=== PATIENT | female | born 1950 | race Caucasian/White ===

== ENCOUNTER 2017-04-05 05:23 | Inpatient (IN) ==
--- OUTSIDE RECORDS SUMMARY | 2017-04-05 05:31 | External Medical Summary | Continuity of Care Document ---
:1950 Author Organization [facility] LIVE HCIS Care Team Providers Name Role Phone Fox Britt MD Unavailable Unavailable Insurance Providers Payer Name Policy Number Subscriber Name Relationship [employer] [id number] Penelope Newman 18 Self / Same As Patient Problems Medical Problems Problem Onset Date Status Fracture of head of left humerus Unknown Active Medications Medication Dose Route Sig Days/Qty Instructions Order Discontinued Status Date Date [No Home 02/15/15 Active Meds] Oxycodone/Jg 1-2 Tab ORAL THREE 12 Qty 02/15/15 Active taminophen TIMES A DAY PRN PAIN Social History No social history. Hospital Discharge Instructions No hospital discharge instructions. Plan of Care No plan of care. Functional Status No functional status results. Allergies, Adverse Reactions, Alerts Allergen Type Severity Reaction Status Last Updated No Known Drug Allergies Active 02/15/15 Immunizations No immunization records. Vital Signs No known vital signs results. Results No known relevant diagnostic tests, laboratory data and/or discharge summary. Procedures Procedure Status Date Provider(s) X-RAY EXAM OF SHOULDER completed 03/27/15 Encounters Encounter Location Date/Time Discharged Recurring [facility] 04/07/15 9:45am Registered Clinic [facility] 03/27/15 11:20am
--- OUTSIDE RECORDS SUMMARY | 2017-04-05 05:31 | External Medical Summary | Continuity of Care Document ---
:1950 Author Organization [facility] Care Team Providers Name Role Phone Fox Britt MD Unavailable Unavailable Insurance Providers Payer Name Policy Number Subscriber Name Relationship Medicare A And B [id number] Penelope Newman 18 Self / Same As Patient Advance Directives Directive Response Recorded Date/Time Advanced Directives Not applicable 05/25/15 4:17pm Problems Active Problems Medical Problem Onset Date Status Fracture of head of left humerus Unknown Acute Injury of lower extremity Unknown Acute Medications Current Home Medications Medication Dose Units Route Directions Days/Qty Instructions Start Date [No Home Meds] 02/15/15 Past Home Medications Medication Directions Ordered Status Oxycodone/Acetaminophen 1 Tab Three Times A Day as needed for 02/15/15 Discontinued Tablet, 1-2 Tab Oral Pain Social History No social history. Hospital Discharge Instructions Current inpatient/outpatient. Discharge instructions are currently unavailable. Plan of Care Prescriptions Functional Status No functional status results. Allergies, Adverse Reactions, Alerts No known allergies. Immunizations No immunization records. Vital Signs Acute Vital Signs Vital Response Date/Time Temperature (Fahrenheit) 98.6 05/25/2015 4:17pm Pulse 85 bpm 05/25/2015 6:34pm Respirations 18 05/25/2015 6:34pm Results Laboratory Results Test Name Result Units Flags Reference Collection Result Comments Date/Time Date/Time White Blood Count 6.51 10^3uL 4.0-11.0 05/25/2015 05/25/2015 3:29pm 4:45pm Red Blood Count 4.38 10^6uL 4.00-5.00 05/25/2015 05/25/2015 3:29pm 4:45pm Hemoglobin 13.7 g/dL 12.0-15.5 05/25/2015 05/25/2015 3:29pm 4:45pm Hematocrit 40.20 % 35.00-45.00 05/25/2015 05/25/2015 3:29pm 4:45pm Mean Corpuscular 92 FL 80-100 05/25/2015 05/25/2015 Volume 3:29pm 4:45pm Mean Corpuscular 31.3 PG 26.0-34.0 05/25/2015 05/25/2015 Hemoglobin 3:29pm 4:45pm Mean Corpuscular 34.1 g/dL 31.0-37.0 05/25/2015 05/25/2015 Hemoglobin Concent 3:29pm 4:45pm Red Cell 12.8 % 11.8-15.6 05/25/2015 05/25/2015 Distribution Width 3:29pm 4:45pm Platelet Count 216 10^3uL 150-450 05/25/2015 05/25/2015 3:29pm 4:45pm Mean Platelet 11.2 FL H 6.0-9.5 05/25/2015 05/25/2015 Volume 3:29pm 4:45pm Neutrophils (%) 49 % L 51-67 05/25/2015 05/25/2015 (Auto) 3:29pm 4:45pm Lymphocytes (%) 41 % 20-46 05/25/2015 05/25/2015 (Auto) 3:29pm 4:45pm Monocytes (%) 8 % 3-11 05/25/2015 05/25/2015 (Auto) 3:29pm 4:45pm Eosinophils (%) 1 % 0-4 05/25/2015 05/25/2015 (Auto) 3:29pm 4:45pm Basophils (%) 1 % 0-2 05/25/2015 05/25/2015 (Auto) 3:29pm 4:45pm Neutrophils # 3.2 X10^3 05/25/2015 05/25/2015 (Auto) 3:29pm 4:45pm Lymphocytes # 2.7 X10^3 05/25/2015 05/25/2015 (Auto) 3:29pm 4:45pm Monocytes # (Auto) 0.5 X10^3 05/25/2015 05/25/2015 3:29pm 4:45pm Eosinophils # 0.0 10^3uL 05/25/2015 05/25/2015 (Auto) 3:29pm 4:45pm Basophils # (Auto) 0.1 10^3uL 05/25/2015 05/25/2015 3:29pm 4:45pm Prothrombin Time 11.9 SEC 11.9-14.2 05/25/2015 05/25/2015 3:29pm 4:46pm Prothromb Time 0.9 0.8-1.4 05/25/2015 05/25/2015 International Ratio 3:29pm 4:46pm Activated Partial 27.4 SEC 24.9-35.9 05/25/2015 05/25/2015 Thromboplast Time 3:29pm 4:46pm Volume Urine 10 mL 05/25/2015 05/25/2015 Centrifuged 5:55pm 6:13pm Urine Collection CATHETER 05/25/2015 05/25/2015 Type 5:55pm 6:13pm Urine Color Yellow 05/25/2015 05/25/2015 5:55pm 6:11pm Urine Clarity Slightly 05/25/2015 05/25/2015 Cloudy 5:55pm 6:11pm Urine pH 7.5 5.0 - 8.0 05/25/2015 05/25/2015 5:55pm 6:11pm Urine Specific 1.020 1.005-1.030 05/25/2015 05/25/2015 [place] 5:55pm 6:11pm Urine Protein Negative Negative 05/25/2015 05/25/2015 5:55pm 6:11pm Urine Glucose (UA) Negative Negative 05/25/2015 05/25/2015 5:55pm 6:11pm Urine RBC (Auto) Trace-inta H Negative 05/25/2015 05/25/2015 ct 5:55pm 6:11pm Urine Ketones Negative Negative 05/25/2015 05/25/2015 5:55pm 6:11pm Urine Nitrite Negative Negative 05/25/2015 05/25/2015 5:55pm 6:11pm Urine Bilirubin Negative Negative 05/25/2015 05/25/2015 5:55pm 6:11pm Urine Urobilinogen 0.2 mg/dL 0.2-1.0 05/25/2015 05/25/2015 5:55pm 6:11pm Urine Leukocyte Negative Negative 05/25/2015 05/25/2015 Esterase 5:55pm 6:11pm Urine RBC 5-10 /HPF H 05/25/2015 05/25/2015 5:55pm 6:13pm Urine WBC 0-2 /HPF 05/25/2015 05/25/2015 5:55pm 6:13pm Urine Bacteria Rare /HPF 05/25/2015 05/25/2015 5:55pm 6:13pm Urine Squamous 2-5 /LPF 05/25/2015 05/25/2015 Epithelial Cells 5:55pm 6:13pm Urine Calcium 1+ /HPF H 05/25/2015 05/25/2015 Oxalate Crystals 5:55pm 6:13pm Urine Mucus 1+ 05/25/2015 05/25/2015 5:55pm 6:13pm Sodium Level 143 mmol/L 135-150 05/25/2015 05/25/2015 4:34pm 4:53pm Potassium Level 3.6 mmol/L 3.5-5.1 05/25/2015 05/25/2015 4:34pm 4:53pm Chloride Level 102 mmol/L 98-108 05/25/2015 05/25/2015 4:34pm 4:53pm Carbon Dioxide 30 mmol/L H 22-29 05/25/2015 05/25/2015 Level 4:34pm 4:53pm Anion Gap 13.9 MEQ/L -05/25/2015 05/25/2015 4:34pm 4:53pm Blood Urea Nitrogen 11 mg/dL 02-2205/25/2015 05/25/2015 4:34pm 4:53pm Creatinine 0.63 mg/dL 0.6-1.2 05/25/2015 05/25/2015 4:34pm 4:53pm BUN/Creatinine 17 1005/25/2015 05/25/2015 Ratio 4:34pm 4:53pm Estimat Glomerular 114.8 05/25/2015 05/25/2015 Filtration Rate 4:34pm 4:53pm Estimated GFR 94.8 05/25/2015 05/25/2015 (Non- 4:34pm 4:53pm [place] Glucose Level 153 mg/dL H 70-110 05/25/2015 05/25/2015 4:34pm 4:53pm Calculated 277 mosm/L L 280-300 05/25/2015 05/25/2015 Osmolality 4:34pm 4:53pm Calcium Level 9.0 mg/dL 8.8-10.8 05/25/2015 05/25/2015 4:34pm 4:53pm Calcium/Ionized 4.2 mg/dL 3.8-4.6 05/25/2015 05/25/2015 Calcium Ratio 4:34pm 4:53pm Total Bilirubin 0.3 mg/dL 0.1-1.0 05/25/2015 05/25/2015 4:34pm 4:53pm Alkaline 56 U/L 38-126 05/25/2015 05/25/2015 Phosphatase 4:34pm 4:53pm Aspartate Amino 19 U/L 15-37 05/25/2015 05/25/2015 Transf (AST/SGOT) 4:34pm 4:53pm Alanine 23 U/L L 30-65 05/25/2015 05/25/2015 Aminotransferase 4:34pm 4:53pm (ALT/SGPT) Total Protein 6.5 g/dL 6.4-8.5 05/25/2015 05/25/2015 4:34pm 4:53pm Albumin 3.8 g/dL 3.4-5.0 05/25/2015 05/25/2015 4:34pm 4:53pm Albumin/Globulin 1.407 1.1-1.8 05/25/2015 05/25/2015 Ratio 4:34pm 4:53pm Procedures No known history of procedures. Encounters Encounter Location Arrival/Admit Date Discharge/Depart Date Attending Provider Registered [facility] 05/25/15 6:38pm BRUNILDA, [facility] KARMA Oneill MD Departed [facility] 05/25/15 4:07pm 05/25/15 6:52pm BRUNILDA, [facility] KARMA Oneill MD
--- OUTSIDE RECORDS SUMMARY | 2017-04-05 05:32 | External Medical Summary | Continuity of Care Document ---
:1950 Author Organization [facility] Allergies Active Description Code Type Severity Reaction Onset Reported/ Identified Relationship Clinical to Patient Status Yes No Known F0019 Drug Unknown N/A 02/15/2015 Drug 86817 Aller Allergies gy Medications Problems Date Dx Coded Attending Type Code Diagnosis Diagnosed By 02/15/2015 Balwinder NGUYỄN, Ot V76.12 Fox Tai 02/15/2015 Ot V57.1 02/15/2015 Ot V58.78 02/15/2015 GERARD NGUYỄN, Ot 729.5 MICK D 02/15/2015 GERARD NGUYỄN, Ot 812.01 MICK D 02/15/2015 GERARD NGUYỄN, Ot E000.9 MICK D 02/15/2015 GERARD NGUYỄN, Ot E030 MICK D 02/15/2015 GERARD NGUYỄN, Ot E849.9 MICK D 02/15/2015 GERARD NGUYỄN, Ot E888.9 MICK D 03/27/2015 Isaac NGUYỄN, Ot 905.2 Bj Diego 04/04/2015 Isaac NGUYỄN, Ot 812.01 Bj Diego 04/07/2015 Isaac NGUYỄN, Ot 812.01 Bj Diego 04/07/2015 Isaac NGUYỄN, Ot E001.0 Bj Diego 04/07/2015 Isaac NGUYỄN, Ot E849.0 Bj Diego 04/07/2015 Isaac NGUYỄN, Ot E885.9 Bj Diego 04/07/2015 Isaac NGUYỄN, Ot 905.2 Hair 05/25/2015 Balwinder NGUYỄN, Ot V76.12 Fox Tai 05/25/2015 Isaac NGUYỄN, Ot 905.2 Bj Diego 05/25/2015 Isaac NGUYỄN, Ot 905.2 Bj Diego 05/25/2015 BRUNILDA NGUYỄN, Ot S01.111A KARMA P 05/25/2015 BRUNILDA NGUYỄN, Ot S72.141A KARMA P 05/25/2015 BRUNILDA NGUYỄN, Ot W54.1XXA KARMA P 05/25/2015 BRUNILDA NGUYỄN, Ot Y93.89 KARMA P 06/17/2015 BRUNILDA NGUYỄN, Ot S72.001A KARMA P 06/17/2015 BRUNILDA NGUYỄN, Ot W18.39XA KARMA P 06/17/2015 BRUNILDA NGUYỄN, Ot Y92.015 KARMA P 06/17/2015 BRUNILDA NGUYỄN, Ot Y93.89 KARMA P Procedures Results Encounters ACCT Visit Discharge Status Pt. Type Provider Facility Loc./Unit Complaint No. Date/Time [id number] 05/25/2015 05/25/2015 CLS Outpatient [facility] [id number] 18:38:00 23:59:59 , [facility] [id number] 05/25/2015 05/25/2015 DIS Emergency EUGENIAGIANI Gomez ED [id number] 16:07:00 18:52:00 , [facility] [id number] 04/07/2015 04/07/2015 DIS Outpatient Isaac Gomez PT [id number] 09:45:00 12:00:00 , [facility] [id number] 03/27/2015 03/27/2015 CLS Outpatient Isaac Donaldo RAD [id number] 11:20:00 23:59:59 , [facility] [id number] 03/12/2015 03/12/2015 CLS Outpatient Isaac Donaldo RAD [id number] 13:23:00 23:59:59 , [facility] [id number] 02/15/2015 02/15/2015 DIS Emergency GEEVIDA Gomez ED [id number] 19:53:00 22:50:00 , [facility] D [id number] 12/18/2013 12/18/2013 CLS Outpatient Balwinder Gomez RAD [id number] 08:24:00 23:59:59 , [facility] [id number] 05/11/2012 Document [id number] 12:15:00 Registration
[2017-04-05 05:40] VITALS: BMI 22.9
[2017-04-05] MEDS ORDERED: SALINE FLUSH 10ml SYRINGE IVF PRN (05:44)
[2017-04-05] MEDS ORDERED: FAMOTIDINE PB 20 MG/50 ML BAG IV ONE (06:00)
[2017-04-05] MEDS ORDERED: MELOXICAM 15 MG TABLET PO ONE (06:00)
[2017-04-05] MEDS ORDERED: LIDOCAINE 1% (10mg/ml) 2mL INJ PF SDV ID ONE (06:00)
[2017-04-05] MEDS ORDERED: NOZIN NASAL SWAB NAS ONE ×2 (06:00→10:50)
[2017-04-05] MEDS ORDERED: METOCLOPRAMIDE 10mg/2ml INJECTION IVP ONE (06:00)
[2017-04-05] MEDS ORDERED: ONDANSETRON 4 MG/2 ML INJECTION IVP ONE (06:00)
[2017-04-05] MEDS ORDERED: ACETAMINOPHEN 500 MG TABLET PO ONE (06:00)
[2017-04-05] MEDS ORDERED: CEFAZOLIN 1 G INJECTION IVP ONE (06:00)
[2017-04-05] MEDS ORDERED: TRANEXAMIC ACID 1,000 MG in NS 100 ML IV ONE ×2 (06:00→07:00)
[2017-04-05] MEDS ORDERED: DEXAMETHASONE 4 MG/ML INJECTION IVP ONE (06:00)
[2017-04-05] MEDS: LR 1,000 ML IV SCH ×2 (06:07→08:45)
--- NOTE | 2017-04-05 06:44 | Anesthesia Preoperative Report ---
Anesthesia Preoperative Record - Date and Time Date: 04/05/17 Preoperative Diagnosis: Rt TKA (RA) M17.11 primary osteoarthritis right knee Proposed Procedure: right knee arthroplasty NPO Since Date: 04/04/17 NPO Since Time: 23:00 Allergies/Adverse Reactions: Allergies Allergy/AdvReac Type Severity Reaction Status Date / Time No Known Drug Allergies Allergy Unknown Uncoded 04/05/17 05:52 - Vital Signs Vital Signs: Temperature 98.1 F 04/05/17 05:40 Pulse Rate 89 04/05/17 05:54 Respiratory Rate 17 04/05/17 05:40 Blood Pressure 158/77 H 04/05/17 05:40 Pulse Oximetry 99 04/05/17 05:40 Oxygen Delivery Method Room Air Height and Weight: Height 1.64 m Weight 61.6 kg Body Mass Index 22.9 - Medications Inpatient Medications: Current Medications Lactated Ringer's (Lactated Ringers) 1,000 mls @ 50 mls/hr IV .Q20H SARA Last Admin: 04/05/17 06:07 Dose: 50 mls/hr Epinephrine HCl 0.25 mg/Bupivacaine HCl 30 ml/Morphine Sulfate 15 mg/Ketorolac Tromethamine 60 mg/Sodium Chloride 65.25 mls @ 1 mls/hr OPSITE INTRAOP ONE PRN Reason: Protocol Stop: 04/08/17 01:14 Tranexamic Acid 1,000 mg/ (Sodium Chloride) 110 mls @ 660 mls/hr IV INTRAOP ONE Stop: 04/05/17 07:09 Sodium Chloride (Iv Flush) 10 - 80 ml IVF PRN PRN PRN Reason: Flushing Home Medications: Home Medications Medication Instructions Recorded Confirmed Type Ibuprofen 4 tab PO PRN 02/01/17 04/05/17 History Multivitamin [Multivitamins] 1 cap PO DAILY 02/01/17 04/05/17 History Calcium Carbonate [Calcium] 1 tab PO DAILY 03/25/17 04/05/17 History Magnesium Oxide [Magnesium] 400 mg PO DAILY 03/25/17 04/05/17 History - Medical History Neuro/Musculoskeletal: Reports: Other (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, patent foramen ovale, umbrella procedure ) Other History: Reports: Other (nonessential tremor ) - Surgical History Cardiac Surgeries/Treatments: Reports: Other (Repair PFO 2001 ) GI Surgery/Treatments: Reports: Colonoscopy Musculoskeletal Surgery/Tx: Reports: Orthopedic Surgery (ORIF Rt tibial plateau; Cephalomedullary fixation of left intertrochanteric), Other (achilles tendon repair; Rt hip fx repaired) Anesthesia Reactions: None Hx Family Anesthesia Reaction: No History of Motion Sickness: No - Social History Smoking Status: Never smoker - Pertinent Findings EKG Rhythm: Normal Sinus Rhythm - Physical Exam Respiratory Exam: Present: lungs clear, bilateral breath sounds equal Cardiovascular Exam: Present: regular rate and rhythm, no murmur - Airway Assessment Mallampati Score: I TMD: 3 Fingerbreadths Neck Extension: good Overall Assessment: no airway concerns - ASA ASA Score: 3 - Plan Anesthesia: General Inhalation Gases Peripheral Nerve Block: Saphenous-Right - Discussion Discussion: Discussed risks/options/alternatives of anesthesia and questions answered. Patient consents. Nursing pain assessment noted. Attestation Statement: Prior to the delivery of any anesthetic medication, I examined the patient, developed the plan, obtained the patient's consent and discussed the risk and benefits of the procedure with the patient/guardian.
[2017-04-05] MEDS ORDERED: MIDAZOLAM 2mg/2ml INJECTION IVP ONE (06:46)
[2017-04-05] MEDS ORDERED: SCOPOLAMINE 1.5 MG PATCH TD ONE (06:46)
[2017-04-05] MEDS ORDERED: VANCOMYCIN 1,000 MG INJECTION ONE (06:51)
[2017-04-05] MEDS ORDERED: ROPIVACAINE 0.5% (5mg/ml) 30ml INJ ONE (06:52)
[2017-04-05] MEDS ORDERED: ANESTHESIA MIXTURE 50 ML IV ONE (07:00)
[2017-04-05] MEDS ORDERED: FentaNYL 100 MCG/2 ML INJECTION ONE ×5 (07:07→08:24)
[2017-04-05] MEDS ORDERED: PROPOFOL 20 ML ONE ×2 (07:07→07:08)
[2017-04-05] MEDS ORDERED: LIDOCAINE 2% (100mg/5mL) PF 5ml vl ONE (07:07)
[2017-04-05] MEDS ORDERED: EPHEDRINE 50mg/ml INJECTION ONE (07:24)
[2017-04-05] MEDS ORDERED: SALINE FLUSH 10ml SYRINGE ONE (07:24)
--- NOTE | 2017-04-05 07:41 | Anesthesia Procedure Note ---
Peripheral Nerve Blockade - Procedure Physician: Elmer Henning MD Date: 04/05/17 Surgical Procedure: right knee arthroplasty Discussion: Discussed risks/options/alternatives of anesthesia and questions answered. Patient consents. Nursing pain assessment noted. Block Start: 06:58 Block Stop: 07:00 Blocked Employed: Adductor Canal Indication: Post-Operative Pain Approach: Right Side Confirmed Position: Supine Patient: Consent, Risks/Benefits Discussed, Informed, Post Block Act. Discussed IV Sedation: Yes Midazolam (mg): 2 Initial Vital Signs: Temperature 98.1 F 04/05/17 05:40 Temperature Source Oral 04/05/17 05:40 Pulse Rate 81 04/05/17 05:40 Respiratory Rate 17 04/05/17 05:40 Blood Pressure 158/77 H 04/05/17 05:40 Blood Pressure Mean 104 04/05/17 05:40 Blood Pressure Position Sitting 04/05/17 05:40 Pulse Oximetry 99 04/05/17 05:40 Oxygen Delivery Method 04/05/17 05:40 Post Vital Signs: Temperature 98.1 F 04/05/17 05:40 Pulse Rate 78 04/05/17 07:00 Respiratory Rate 14 04/05/17 07:00 Blood Pressure 103/50 04/05/17 07:00 Pulse Oximetry 98 04/05/17 07:00 Oxygen Delivery Method Nasal Cannula Oxygen Flow Rate 2 Initial Pain Pain Score: 3 Post Block Pain Score: 0 Prep: Chlorhexadine/ETOH - Injectate Ropivacaine (%): 0.5 Ropivacaine (mL): 20 Was Epi 1:200,000 Used?: No Injection: Injection made incrementally with constant monitoring and aspiration every ml
[2017-04-05] MEDS ORDERED: EPINEPHrine 0.25 MG, BUPIVACAINE 0.25% PF 30 ML, MORPHINE SULFATE 15 MG, KETOROLAC INJ ... OPSITE ONE (08:00)
[2017-04-05] MEDS ORDERED: MIDAZOLAM 2mg/2ml INJECTION ONE (08:16)
[2017-04-05] MEDS ORDERED: VANCOMYCIN 1,000 MG INJECTION IAR ONE (08:24)
[2017-04-05] MEDS ORDERED: KETAMINE 500 MG/10 ML INJECTION ONE (08:25)
[2017-04-05] MEDS ORDERED: HYDROMORPHONE 2 MG/ML INJECTION IVP PRN (08:56)
[2017-04-05] MEDS ORDERED: ONDANSETRON 4 MG/2 ML INJECTION ONE (09:00)
--- NOTE | 2017-04-05 09:29 | Operative Note ---
- Procedure Side: right Preoperative Diagnosis: knee primary DJD Postoperative Diagnosis: Same as preoperative diagnosis. Operation: total knee arthroplasty Surgeon: Shubham Henning MD Rug Clipper: Roberto Sterling Complications: None. Anesthesia: General TIVA Peripheral Nerve Block: Saphenous-Right Estimated Blood Loss: See Anesthesia Record. Fluids: Please see Anesthesia Record. Description of Procedure: Mrs. Augustin in her right knee were identified and marked in the preoperative holding area and she was brought back to the operating suite and placed supine on the operating table. She is placed under general anesthesia and the right lower extremity was prepped and draped in my normal sterile fashion. A regional block was placed in the preoperative holding area. Timeout was performed. 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 A standard anterior midline approach was utilized. Followed by a medial parapatellar arthrotomy. I then placed my tibial array the 2 poke holes in the tibia. The femoral array was then placed in the medial femoral metaphysis. Checkpoints were then placed and the bone was registered with the [employer] robot. The deformity was then corrected and numbers captured at 90 and in full extension. To balance her knee we had to place the tibial component in 3 of valgus and removed the femoral component anteriorly and distally. There were no chondral robot was then used to assist in cutting the bone. Bone cuts were then removed as well as remaining osteophytes and meniscus. Joint cocktail was injected into the back of the knee. Then trialed with a 9 mm spacer and this was good and well balanced the patella tracked well she was a bit loose throughout range of motion so I trialed with an 11 mm spacer and this was much better. The patella was then resurfaced to a 32. She did have a posterior lateral defect has expected do not feel this required an augment that it only encompassed about 30% of the posterior half of the lateral plateau. Her bone was rather osteoporotic which could be seen visually as well as noted when bone cuts were made. The tibia was then stamped and I drilled for 100 mm stem to bypass the previous screw holes and because of her osteoporosis. The leg was then exsanguinated and the tourniquet inflated and the bone was prepared for cementing and components cemented into place and allowed to cure in extension. The tourniquet was then let down and hemostasis obtained with electrocautery. The wound was thoroughly irrigated. 1 g vancomycin powder was placed into the knee before the capsulotomy was closed with #1 Vicryl followed by 2-0 Vicryl and the simultaneous tissue. I then with my real estate assistant closed the skin with running 4-0 Monocryl followed by Dermabond and a sterile dressing. She was imaging to the recovery room under the care of anesthesia she tolerated the procedure well and there were no complications.
[2017-04-05 10:38] VITALS: RESP 16
[2017-04-05] MEDS ORDERED: DiphenhydrAMINE 25 MG CAPSULE PO PRN (10:50)
[2017-04-05] MEDS ORDERED: ONDANSETRON 4 MG/2 ML INJECTION IVP PRN (10:50)
[2017-04-05] MEDS ORDERED: LORazepam 1 MG TABLET PO PRN (10:50)
[2017-04-05] MEDS ORDERED: NAPROXEN 220 MG TABLET PO PRN (10:50)
[2017-04-05] MEDS ORDERED: DiphenhydrAMINE 50 MG/ML INJECTION IVP PRN (10:50)
--- NOTE | 2017-04-05 11:02 | XRay Report ---
Indication: postoperative image PROCEDURE: XR knee RT 2V: Encounter: Initial Comparison: March 30, 2017 Findings: Postoperative changes of right total knee replacement are seen. Extended tibial component. Skin dandy. There is expected postoperative subcutaneous gas. No evidence of hardware failure or acute fracture. No retained radiopaque surgical instruments or sponges. Overlying material causing artifact. Impression: New right total knee prosthesis without evidence of immediate complication. .
[2017-04-05] MEDS: NS 1,000 ML IV SCH ×2 (11:05→22:58)
[2017-04-05] MEDS: ACETAMINOPHEN 325 MG TABLET PO SCH ×4 (11:22→20:57)
--- NOTE | 2017-04-05 11:41 | Anesthesia Postoperative Note ---
- Date and Time Date: 04/05/17 Time: 11:00 - Status Patient Participated in Evaluation: Patient Participated in Person Vital Signs: Temperature 96.0 F L 04/05/17 11:04 Pulse Rate 84 04/05/17 11:04 Respiratory Rate 16 04/05/17 11:04 Blood Pressure 134/67 04/05/17 11:04 Pulse Oximetry 98 04/05/17 11:04 Oxygen Delivery Method Room Air Oxygen Flow Rate 2 Respiratory Function: Airway Patent Cardiovascular Function: Regular Pulse EKG Rhythm: Normal Sinus Rhythm Mental Status: Alert and Oriented Pain Intensity: 0 Hydration: IV Infusing Complications During Recover: None Apparent - Follow-Up Instructions Instructions: Per Surgeon
[2017-04-05] MEDS: POLYETHYL GLYCOL 3350 17gm PACKET PO SCH (11:58)
[2017-04-05] MEDS: ASPIRIN *EC* 325 MG TABLET PO SCH ×2 (11:59→20:57)
[2017-04-05] MEDS: DOCUSATE SODIUM 100 MG CAPSULE PO SCH ×2 (11:59→20:57)
[2017-04-05] MEDS: MAGNESIUM OXIDE 400 MG TABLET PO SCH (12:13)
[2017-04-05] MEDS: NOZIN NASAL SWAB NAS SCH ×2 (13:58→20:59)
[2017-04-05] MEDS: CEFAZOLIN 2 G in NS 100 ML IV SCH ×2 (13:59→22:58)
[2017-04-05] MEDS: Oxycodone *IR* 5 MG TABLET PO PRN ×2 (17:22→20:59)
[2017-04-05] MEDS ORDERED: SENNOSIDES 8.6 MG TABLET PO SCH (21:00)
[2017-04-06] MEDS: Oxycodone *IR* 5 MG TABLET PO PRN ×5 (02:00→18:27)
[2017-04-06] MEDS: NOZIN NASAL SWAB NAS SCH ×2 (05:28→14:45)
--- NOTE | 2017-04-06 06:19 | History & Physical Update ---
- History and Physical Update Date: 04/06/17 Update: I evaluated this patient and found no changes in the history and clinical exam findings. The treatment plan and recommendations are also unchanged from the previous documentation.
[2017-04-06] MEDS ORDERED: SENNOSIDES 8.6 MG TABLET PO PRN (07:13)
--- NOTE | 2017-04-06 07:51 | Orthopedic Progress Note ---
Date: Subjective/Severity of Illness: Penelope is doing okay. Denies CP, cough or SOA. Didn't sleep well but isn't sure why. Pain is fairly well controlled. She has been up with good tolerance. Orthopedic Objective PO Vital signs: Temperature 96.1 F L 04/06/17 04:00 Pulse Rate 82 04/06/17 04:00 Respiratory Rate 16 04/06/17 04:00 Blood Pressure 124/65 04/06/17 04:00 Pulse Oximetry 100 04/06/17 04:00 Height and Weight: Height 5 ft 4.5 in Weight 135 lb 12.876 oz Body Mass Index 22.9 - Constitutional General Appearance: Present: alert, cooperative, no acute distress - Respiratory Exam Present: non-labored - Cardiovascular Exam Present: pedal pulses intact - Extremities Exam Extremities: Absent: calf tenderness - Surgical Site Incision: Mepilex dressing intact, no drainage - Neurological Exam Present: no deficits - Psychiatric Exam Present: alert - Labs Result Diagrams: 04/06/17 04:02 04/06/17 04:02 Abnormal lab results 04/06/17 Range/Units 04:02 RBC 2.70 L (4.00-5.20) M/MM3 Hgb 8.3 L (12-16) GM/DL Hct 26.0 L (36-46) % H & H 04/06/17 Range/Units 04:02 Hgb 8.3 L (12-16) GM/DL Hct 26.0 L (36-46) % Orthopedic Assessment and Plan (1) Traumatic arthritis of right knee Status: Acute Assessment and Plan: Current anti-coagulation protocol for VTE prophylaxis. SCD's. Hgb 8.3 but well tolerated. PT/OT services to improve independent function. Discharge Planning per Case Management. - Anticoagulation Therapy Anticoagulation: ASA 325 mg PO BID x6 weeks Hospital Course Summary Disclaimer: The visit summary below is not to be considered part of the above Progress Note.
[2017-04-06] MEDS: POLYETHYL GLYCOL 3350 17gm PACKET PO SCH (08:17)
[2017-04-06] MEDS: ASPIRIN *EC* 325 MG TABLET PO SCH (08:17)
[2017-04-06] MEDS: DOCUSATE SODIUM 100 MG CAPSULE PO SCH (08:17)
[2017-04-06] MEDS: ACETAMINOPHEN 325 MG TABLET PO SCH ×3 (08:17→18:27)
[2017-04-06] MEDS: MAGNESIUM OXIDE 400 MG TABLET PO SCH (08:18)
--- NOTE | 2017-04-06 14:40 | Discharge Summary ---
Orthopedic Discharge Info Date of admission: 04/05/17 05:23 Primary care physician: YOSELYN MOTTA Attending Physician: Elmer Henning MD Consults: 04/05/17 05:44 Consult to Anesthesiology [CONS] Routine Consulting Provider: KAE Alvarado Reason For Exam: Preoperative Assessment 04/05/17 10:50 Case Management Consult [CONS] Routine Reason For Exam: Discharge Planning DME-Walker [CONS] Routine Height: 5 ft 4.5 in Weight: 135 lb 12.876 oz Comment: change dressing in 2 weeks Total Joint Outpatient Therapy [CONS] Routine Comment: change dressing in 2 weeks - Discharge Diagnosis (1) Traumatic arthritis of right knee Status: Acute - Procedures Procedures: Procedures Right TKA - Laboratory Result Diagrams: 04/06/17 04:02 04/06/17 04:02 Laboratory: Abnormal lab results 04/06/17 Range/Units 04:02 RBC 2.70 L (4.00-5.20) M/MM3 Hgb 8.3 L (12-16) GM/DL Hct 26.0 L (36-46) % H & H 04/06/17 Range/Units 04:02 Hgb 8.3 L (12-16) GM/DL Hct 26.0 L (36-46) % Orthopedic Discharge HPI - HPI Comments This patient was admitted for elective surgical tx of end stage degenerative joint disease that failed to respond to conservative treatment. Further details of this is found in the admission H&P. Orthopedic Hospital Course Hospital course: 04/06/17 14:37 After appropriate preoperative clearance and signing of operative consent, the patient was given IV antibiotics, according to orthopedic protocol. The patient was taken to the operating room and underwent elective joint arthroplasty. Following surgery, antibiotics were discontinued less than 24 hours according to joint protocol. Appropriate anticoagulants were initiated and SCDs added for DVT prevention. The dressing was clean, dry, and intact. Pain control was obtained via multimodal approach. Bowel motivation addressed with scheduled and PRN medications. Early mobilization was initiated through PT services. Discharge arrangements made by a collaborative effort between the patient and Case Management. Follow-up is scheduled in 2-3 weeks. Discharge instructions given by orthopedic providers and nursing staff at discharge. Discharge condition was good. Ongoing care required?: No - Postoperative Anemia patient received IVF, labs monitored daily, no intervention required, HGB drop- acceptable Discharge Plan - Med Rec/Dispo Referrals/Follow Up: Elmer Henning MD [Physician] - 04/27/17 10:45 am Additional Instructions: [facility] ON 04/08/2017 AT 2:15PM FOR PHYSICAL THERAPY [facility]. PLEASE COMPLETE THE PAPERWORK IN THE [facility] PRIOR TO THE APPOINTMENT. PHONE [phone] Prescriptions: New Naproxen [Aleve] 440 mg PO BID PRN #84 tab PRN Reason: Pain Oxycodone *Ir* [Roxicodone *Ir*] 5 - 15 mg PO Q3H PRN #60 tab PRN Reason: Breakthrough Pain Acetaminophen [Tylenol] 650 mg PO QID #100 tab Aspirin *EC* [Ecotrin] 325 mg PO BID #84 tab Continue Multivitamin [Multivitamins] 1 cap PO DAILY Magnesium Oxide [Magnesium] 400 mg PO DAILY Calcium Carbonate [Calcium] 1 tab PO DAILY Discontinued Ibuprofen 4 tab PO PRN Hydrocodone/APAP 7.5/325 [[place] 7.5/325] 1 - 2 tab PO Q6H PRN #60 tablet PRN Reason: Pain - Disposition Discharged Home, Self-Care
[2017-04-06 16:23] VITALS: BP 116/67; PULSE 82; TEMP 97.9; O2SAT 98
[2017-04-07] MEDS ORDERED: BISACODYL 10 MG SUPPOSITORY RECTALLY SCH (20:00)
[2017-04-08] MEDS ORDERED: SCOPOLAMINE PATCH REMOVAL TD SCH (06:45)
== END 2017-04-06 19:45 | disposition home or self-care (01) | DRG 470 ==
LOC: SRG 05:23
PROVIDERS: ADMIT Orthopaedic Surgery; ATTEND Orthopaedic Surgery